=== PATIENT | female | born 1975 | race Caucasian/White ===

== ENCOUNTER 2018-01-04 15:17 | Outpatient (CLI) | payer OTHER | END 2018-01-04 15:18 | disposition home or self-care (01) | LOC: BICMAMMO 15:17 | PROVIDERS: ATTEND Family Medicine | DX: Z12.31 Encounter for screening mammogram for malignant neoplasm of breast (principal) | CPT/HCPCS: 77063; 77067 ==

== ENCOUNTER 2019-12-26 13:17 | Outpatient (CLI) | payer OTHER ==
--- NOTE | 2019-12-26 14:18 | MMO ---
Bilateral MAMMO Bilat Screen [facility]. CLINICAL HISTORY: Patient is 44 years old and is seen for screening. The patient has no family history of breast cancer. The patient has no personal history of cancer. VIEWS: The views performed were: bilateral craniocaudal with tomosynthesis and bilateral mediolateral oblique with tomosynthesis. FILMS COMPARED: The present examination has been compared to a prior imaging study performed at [facility] on 01/04/2018. This study has been interpreted with the assistance of computer-aided detection. MAMMOGRAM FINDINGS: There are scattered fibroglandular densities. Finding 1: There is a stable asymmetry seen in the right breast. Finding 2: There are stable benign appearing calcifications seen in both breasts. There are no suspicious masses, suspicious calcifications, or new areas of architectural distortion. IMPRESSION: THERE IS NO MAMMOGRAPHIC EVIDENCE OF MALIGNANCY. A ROUTINE FOLLOW-UP MAMMOGRAM IN 1 YEAR IS RECOMMENDED. THE RESULTS OF THIS EXAM WERE SENT TO THE PATIENT. ACR BI-RADS Category 2 - Benign finding MAMMOGRAPHY NOTE: 1. A negative mammogram report should not delay a biopsy if a dominant of clinically suspicious mass is present. 2. Approximately 10% to 15% of breast cancers are not detected by mammography. 3. Adenosis and dense breasts may obscure an underlying neoplasm. Reported by: CHRISTINE LIMON MD Electonically Signed: [id number]
== END 2019-12-26 13:18 | disposition home or self-care (01) ==
LOC: BICMAMMO 13:17
PROVIDERS: ATTEND Family Medicine
DX: Z12.31 Encounter for screening mammogram for malignant neoplasm of breast (principal)
CPT/HCPCS: 77063; 77067

== ENCOUNTER 2021-10-24 10:58 | Emergency (ER) | payer BC ==
[2021-10-24 11:57] LABS: #Basophils 0.1 thou/uL (0.0-0.2); #Eosinphils 0.3 thou/uL (0.0-0.7); #Lymphocytes 2.7 thou/uL (1.20-3.40); #Monocytes 0.3 thou/uL (0.11-0.59); #Neutrophils 4.6 thou/uL (1.40-6.50); %Basophils 0.8 % (0.0-1.0); %Eosinophils 3.7 % (0.0-10.0); %Lymphocytes 33.9 % (21.0-51.0); %Monocytes 3.9 % (0.0-10.0); %Neutrophils 57.8 % (42.0-75.0); Hemoglobin 13.5 g/dL (12.0-16.0); Mean Corpuscular HGB CONC 33.9 g/dL (32.0-36.0); Mean Corpuscular Hemoglobin 30.9 pg (27.0-31.0); Mean Corpuscular Volume 91.1 fL (78.0-98.0); Mean Platelet Volume 7.9 fL (7.4-10.4); Platelet Count 226 thou/uL (130-400); RBC Distribution Width 11.4 % (11.5-14.5); Red Blood Cell (RBC) Count 4.38 mill/uL (4.20-5.40); White Blood Cell (WBC) Count 7.9 thou/uL (4.8-10.8)
[2021-10-24 12:13] LABS: ALT (SGPT) 31 U/L (8-55); AST (SGOT) 22 U/L (5-34); Albumin 4.1 g/dL (3.5-5.0); Alkaline Phosphatase 101 U/L (40-110); Anion Gap 15 mmol/L (10-20); BUN (Urea Nitrogen) 13 mg/dL (7.0-18.7); Bilirubin, Total 0.7 mg/dL (0.2-1.2); Calc. Creatinine Clearance 0 mL/min (70-130); Calcium 9.3 mg/dL (7.8-10.44); Carbon Dioxide 24 mmol/L (22-29); Chloride 101 mmol/L (98-107); Globulin 2.9 g/dL (2.4-3.5); Glucose 134 mg/dL (70-105); Lipase 13 U/L (8-78); Sodium 136 mmol/L (136-145)
== END 2021-10-24 13:21 | disposition home or self-care (01) ==
LOC: ERS 10:58
DX: F41.9 Anxiety disorder, unspecified (principal); I10 Essential (primary) hypertension; F32.A Depression, unspecified; Z79.899 Other long term (current) drug therapy
CPT/HCPCS: 36415; 71045; 80053; 83690; 84484; 85025; 93005; 94760

== ENCOUNTER 2021-12-20 16:00 | Inpatient (IN) | payer BC ==
[2021-12-27 15:21] VITALS: BMI 42.9
[2022-01-01] MEDS ORDERED: Heparin 5,000 UNITS/ML VIAL ONE (10:21)
[2022-01-01] MEDS ORDERED: SUGAMMADEX SODIUM 200 MG/2 ML VIAL ONE (11:42)
[2022-01-01] MEDS ORDERED: fentaNYL Citrate/PF 100 MCG/2 ML SYRINGE ONE (11:42)
[2022-01-01] MEDS ORDERED: Lidocaine 1% w/Epinephrine 1:200K 30 ML VIAL ONE (11:44)
[2022-01-01] MEDS ORDERED: Bupivacaine 0.25% 10 ML VIAL ONE (11:44)
[2022-01-01] MEDS ORDERED: Sodium Chloride 0.9% 100 ML ONE (11:56)
[2022-01-01] MEDS ORDERED: CEFAZOLIN 2 GM VIAL ONE (11:56)
[2022-01-01] MEDS ORDERED: Ondansetron PF 4 MG/2 ML Vial ONE (12:04)
[2022-01-01] MEDS ORDERED: Ketorolac Tromethamine 30 MG/ML VIAL ONE (12:04)
[2022-01-01] MEDS ORDERED: PROPOFOL 200 MG/20 ML VIAL ONE (12:04)
[2022-01-01] MEDS ORDERED: Lidocaine 1% PF 5 ML VIAL ONE (12:04)
[2022-01-01] MEDS ORDERED: Rocuronium Bromide 10 MG/ML (10ML VIAL) ONE (12:04)
[2022-01-01] MEDS ORDERED: Dexamethasone 20 MG/5 ML VIAL ONE (12:04)
[2022-01-01] MEDS ORDERED: Promethazine HCl 25 MG/ML VIAL IM PRN (13:08)
[2022-01-01] MEDS ORDERED: Promethazine HCl 25 MG/ML VIAL IVPB PRN (13:08)
[2022-01-01] MEDS ORDERED: Meperidine HCl/PF 25 MG/ML VIAL SLOW IVP PRN (13:08)
[2022-01-01] MEDS ORDERED: Ondansetron HCl/PF 4 MG/2 ML Vial IVP PRN (13:08)
[2022-01-01] MEDS ORDERED: hydrALAZINE 20 MG/ML VIAL SLOW IVP PRN (13:27)
[2022-01-01] MEDS ORDERED: diphenhydrAMINE 50 MG/ML VIAL IVP PRN (13:27)
[2022-01-01] MEDS ORDERED: Dextrose 5% in Water 1,000 ML IV PRN (13:27)
[2022-01-01] MEDS ORDERED: Dextrose 50% Abboject 50 ML SYRINGE SLOW IVP PRN (13:27)
[2022-01-01] MEDS ORDERED: Ondansetron PF 4 MG/2 ML Vial IVP PRN (13:27)
[2022-01-01] MEDS ORDERED: Hydrocodone-Acetamin 15 ML UDCUP PO PRN (13:27)
[2022-01-01] MEDS ORDERED: Fentanyl 100 MCG/2 ML VIAL SLOW IVP PRN (13:30)
[2022-01-01] MEDS ORDERED: Fentanyl 100 MCG/2 ML VIAL ONE ×2 (13:49→14:11)
[2022-01-01] MEDS ORDERED: Midazolam HCl 2 mg/2 ml Vial ONE (14:29)
[2022-01-01] MEDS ORDERED: hydrALAZINE 20 MG/ML VIAL ONE (14:42)
[2022-01-01] MEDS: Ketorolac Tromethamine 30 MG/ML VIAL IVP SCH ×2 (17:51→23:17)
[2022-01-01] MEDS: Promethazine HCl 25 MG/ML VIAL IM PRN ×2 (17:54→21:32)
[2022-01-01] MEDS: D5 1/2 NS w/20 mEq KCL 1,000 ML IV SCH (17:59)
[2022-01-01] MEDS: CEFAZOLIN 2 GM in Sodium Chloride 0.9% 100 ML IVPB SCH (20:04)
[2022-01-02] MEDS: D5 1/2 NS w/20 mEq KCL 1,000 ML IV SCH ×2 (03:59→09:01)
[2022-01-02] MEDS: CEFAZOLIN 2 GM in Sodium Chloride 0.9% 100 ML IVPB SCH (03:59)
[2022-01-02] MEDS: Ketorolac Tromethamine 30 MG/ML VIAL IVP SCH (05:20)
[2022-01-02 05:47] LABS: #Lymphocytes 1.5 thou/uL (1.20-3.40); #Monocytes 0.5 thou/uL (0.11-0.59); #Neutrophils 9.6 thou/uL (1.40-6.50); %Basophils 0.1 % (0.0-1.0); %Eosinophils 0.1 % (0.0-10.0); %Lymphocytes 12.8 % (21.0-51.0); %Monocytes 4.2 % (0.0-10.0); %Neutrophils 82.9 % (42.0-75.0); Hemoglobin 12.4 g/dL (12.0-16.0); Mean Corpuscular HGB CONC 33.9 g/dL (32.0-36.0); Mean Corpuscular Hemoglobin 30.6 pg (27.0-31.0); Mean Corpuscular Volume 90.2 fL (78.0-98.0); Mean Platelet Volume 8.6 fL (7.4-10.4); Platelet Count 226 thou/uL (130-400); RBC Distribution Width 11.9 % (11.5-14.5); Red Blood Cell (RBC) Count 4.04 mill/uL (4.20-5.40); White Blood Cell (WBC) Count 11.6 thou/uL (4.8-10.8)
[2022-01-02 06:04] LABS: Anion Gap 14 mmol/L (10-20); BUN (Urea Nitrogen) 9 mg/dL (7.0-18.7); Calc. Creatinine Clearance 155 mL/min (70-130); Calcium 8.9 mg/dL (7.8-10.44); Carbon Dioxide 27 mmol/L (22-29); Chloride 100 mmol/L (98-107); Estimated GFR 87; Glucose 183 mg/dL (70-105); Potassium 4.3 mmol/L (3.5-5.1); Sodium 137 mmol/L (136-145)
[2022-01-02 08:09] VITALS: BP 136/75; TEMP 97.7
[2022-01-02] MEDS ORDERED: Pantoprazole 40 MG VIAL IVP SCH (09:00)
[2022-01-02] MEDS ORDERED: Enoxaparin Sodium 40 MG/0.4 ML SYRINGE SC SCH (09:00)
== END 2022-01-02 10:57 | disposition home or self-care (01) | DRG 621 ==
LOC: SURG A 01-01 08:57 → SURG B 01-01 15:50
PROVIDERS: ADMIT Surgery; ATTEND Surgery
PROC: 0DB64Z3 Excision of Stomach, Percutaneous Endoscopic Approach, Vertical (ICD-10-PCS; principal; 2022-01-01)
PROC: 8E0W4CZ Robotic Assisted Procedure of Trunk Region, Percutaneous Endoscopic Approach (ICD-10-PCS; 2022-01-01)
DX: E66.01 Morbid (severe) obesity due to excess calories (principal); Z68.41 Body mass index [BMI] 40.0-44.9, adult; F41.9 Anxiety disorder, unspecified; F32.A Depression, unspecified; E78.5 Hyperlipidemia, unspecified; I10 Essential (primary) hypertension; Z90.49 Acquired absence of other specified parts of digestive tract; Z88.8 Allergy status to other drugs, medicaments and biological substances
CPT/HCPCS: 36415; 80048; 85025; 88307; 88342; C1713; C9113; J0360; J0690; J1100; J1644; J1650; J1885; J2250; J2405; J2550; J2704; J3010; J3480; J3490; S0020

== ENCOUNTER 2021-12-27 16:09 | Outpatient (CLI) | payer BC ==
[2021-12-27 18:26] LABS: #Eosinphils 0.3 10x3/uL (0.0-0.5); #Monocytes 0.4 10x3/uL (0.0-1.1); #Neutrophils 5.2 10x3/uL (1.5-8.4); %Basophils 0.3 % (0.0-2.0); %Eosinophils 3.2 % (0.0-6.0); %Lymphocytes 34.6 % (18.0-47.0); %Monocytes 4.7 % (0.0-10.0); %Neutrophils 56.5 % (40.0-75.0); Hemoglobin 13.1 g/dL (12.0-15.5); Mean Corpuscular HGB CONC 34.2 g/dL (32.0-36.0); Mean Corpuscular Hemoglobin 30.1 pg (27.0-33.0); Platelet Count 287 10x3/uL (150-450); RBC Distribution Width 11.9 % (11.5-14.5); Red Blood Cell (RBC) Count 4.35 10x6/uL (3.90-5.03); White Blood Cell (WBC) Count 9.1 10x3/uL (3.5-10.5)
[2021-12-27 18:41] LABS: BHCG - Serum Negative (NEGATIVE); Pregs Control Background? CLEAR/WHITE (CLR/WHITE); Pregs Control Bar Appear? YES (CONTROL BAR)
[2021-12-27 18:49] LABS: ALT (SGPT) 39 U/L (8-55); AST (SGOT) 40 U/L (5-34); Albumin 4.6 g/dL (3.5-5.0); Alkaline Phosphatase 101 U/L (40-110); Anion Gap 17 mmol/L (10-20); BUN (Urea Nitrogen) 18 mg/dL (7.0-18.7); Bilirubin, Total 0.6 mg/dL (0.2-1.2); Calc. Creatinine Clearance 0 mL/min (70-130); Calcium 9.9 mg/dL (7.8-10.44); Carbon Dioxide 28 mmol/L (22-29); Chloride 101 mmol/L (98-107); Estimated GFR 84; Globulin 2.3 g/dL (2.4-3.5); Glucose 128 mg/dL (70-105); Potassium 4.6 mmol/L (3.5-5.1); Protein, Total 6.9 g/dL (6.0-8.3); Sodium 141 mmol/L (136-145)
[2021-12-27 22:26] LABS: Hemoglobin A1c 7.4 % (4.0-6.0)
== END 2021-12-27 16:10 | disposition home or self-care (01) ==
LOC: LABBT 16:09
PROVIDERS: ATTEND Surgery
DX: Z01.818 Encounter for other preprocedural examination (principal); E66.01 Morbid (severe) obesity due to excess calories; Z20.822 Contact with and (suspected) exposure to COVID-19
CPT/HCPCS: 71046; 80053; 83036; 84703; 85025; 87811; 93005; 93010